=== PATIENT | female | born 1935 | race Asian ===

== ENCOUNTER 2022-09-29 15:18 | Emergency (ER) | payer OTHER ==
[~2022-09-29] VITALS: Ht 149.9 cm; Wt 43.1 kg
[2022-09-29 15:20] VITALS: BP_SYST 101
[2022-09-29] MEDS ORDERED: GASTROGRAFIN 120 ML PO ONE (16:00)
--- NOTE | 2022-09-29 16:10 | NUR ---
PT BIBA AWAKE AND ALERT, AOX1. NO SOB OR DISTRESS. PT WAS BROUGHT FROM [facility] TO CHECK G-TUBE PLACEMENT, THAT WAS ALREADY REPLACED AT [facility] [place]. X-RAY NEEDED TO CONFIRM PLACEMENT.
--- NOTE | 2022-09-29 16:11 | NUR ---
MD DR FUENTES AT BEDSIDE
[2022-09-29] MEDS ORDERED: GASTROGRAFIN 120 ML ONE (16:27)
--- NOTE | 2022-09-29 16:57 | NUR ---
Pt tolerated gastrografin. GT placement verified.
--- NOTE | 2022-09-29 19:40 | NUR ---
Received report from PRISCA Tiwari and PRISCA Mullins; assuming patient cares at this time.
--- NOTE | 2022-09-29 19:45 | NUR ---
Patient A/Ox2, VSS, resp even and unlabored. Patient resting comfortably in bed with safety precautions in place. NAD noted at this time.
--- NOTE | 2022-09-29 22:00 | NUR ---
Patient resting comfortably in bed with safety precautions in place. Nad noted at this time.
[2022-09-30 00:08] VITALS: BP_SYST 135
--- NOTE | 2022-09-30 00:08 | NUR ---
Patient given written and verbal discharge instructions and verbalizes understanding. ER MD discussed with patient the results and treatment provided. Patient in stable condition. ID arm band removed. Patient educated on pain management and to follow up with PMD. Pain Scale 0/10. Opportunity for questions provided and answered. Patient in stable condition and accompanied by [facility].
--- NOTE | 2022-09-30 00:08 | NUR ---
Note undone in EDM - 09/30/22 at 0012 by CATY Patient given written and verbal discharge instructions and verbalizes understanding. ER discussed with patient the results and treatment provided. Patient in stable condition. ID arm band removed. Patient educated on pain management and to follow up with PMD. Pain Scale 0/10. Opportunity for questions provided and answered. Patient in stable condition and accompanied by [facility].
== END 2022-09-30 00:08 ==
LOC: SED 15:18
DX: Z43.1 Encounter for attention to gastrostomy (principal); Z79.899 Other long term (current) drug therapy
CPT/HCPCS: 99283; 74240; Q9963